=== PATIENT | male | born 1970 ===

== ENCOUNTER 2018-02-24 05:45 | Day surgery (SDC) | payer OTHER ==
[~2018-02-24 05:45] MED LIST: FOSINOPRIL SODI40 MG PO; LIPITOR20 MG PO
== END 2018-02-24 17:00 | disposition home or self-care (01) ==
LOC: CIR.AMB 05:45
DX: K40.90 Unilateral inguinal hernia, without obstruction or gangrene, not specified as recurrent (principal)